=== PATIENT | male | born 1980 | race Caucasian/White ===

== ENCOUNTER 2021-03-17 10:53 | Emergency (ER) | payer OTHER, SELFPAY ==
--- NOTE | ~2021-03-17 | XR_ITS ---
EXAMINATION: XR hand RT min 3V, XR wrist RT min 3V EXAM DATE: 03/17/2021 12:14 INDICATION: Right hand swelling, injury . TECHNIQUE: Right hand frontal, lateral and oblique projections obtained and reviewed. Right wrist fro ntal, frontal with ulnar deviation, oblique and lateral projections obtained and reviewed. There is no prior study for comparison. FINDINGS: There is acute closed posttraumatic fracture through the head and neck of the right 4th met acarpal bone, an intra-articular fracture at the MCP joint. There is overlying soft tissue swelling. There is an old healed 5th metacarpal fracture. Right wrist scapholunate joint space is maintained. IMPRESSION: Right 4th metacarpal head/neck intra-articular fracture. Reviewed, dictated and finalized at location A. IMPRESSION: Right 4th metacarpal head/neck intra-articular fracture.
[2021-03-17 11:01] VITALS: BP 142/98; PULSE 112; RESP 16; TEMP 36.8; O2SAT 99
--- NOTE | 2021-03-17 11:57 | ED.UPPEXIN ---
HPI - Extremity Injury (Upper) General Chief Complaint: Extremity Injury, Upper Stated Complaint: R Hand Injury Time Seen by Provider: 03/17/21 11:28 Source: patient Mode of arrival: ambulatory Limitations: no limitations History of Present Illness HPI narrative: This is a 40 year old [id number] male that presents to the ER for right hand pain x 1 week. Reports an [place] Reports he accidentally hit his hand on a rail. Reports bruising, swelling and pain. He did have an x-ray at that time, and was told to see an orthopedic surgeon. He is not sure of the results of that x-ray though. He notes a small scab to the hand. He is up-to-date on tetanus. Denies decreased ROM or numbness. Related Data Allergies Allergy/AdvReac Type Severity Reaction Status Date / Time No Known Allergies Allergy Verified 03/17/21 11:19 Review of Systems Review of Systems: CONSTITUTIONAL: Denies fever SKIN: Denies rash MUSCULOSKELETAL: Reports joint pain, and myalgia. NEUROLOGIC: Denies numbness All systems reviewed & are unremarkable except as noted in HPI and below PMFSH Past Medical History Medical History (Updated 03/17/21 @ 14:35 by Feli Pizarro PA-C) No active medical problems Social History Social History (Updated 03/17/21 @ 12:01 by Feli Pizarro PA-C) Smoking status: Current every day smoker Exam Narrative: GENERAL: Well-appearing, well-nourished, and in no acute distress. HEAD: Normocephalic, atraumatic. EYES: EOMI. EXTREMITIES: Normal range of motion. Moderate edema and bruising to the right hand. Normal radial pulses. Normal sensation SKIN: Warm, dry, no rash. NEURO: No focal deficits. Alert and oriented x3. PSYCH: Normal mood and affect Course Vital Signs Vital signs: Vital Signs Temperature 98.3 F 03/17/21 11:01 Pulse Rate 112 H 03/17/21 11:01 Respiratory Rate 16 03/17/21 11:01 Blood Pressure 142/98 H 03/17/21 11:01 Pulse Oximetry 99 03/17/21 11:01 Temperature 98.3 F 03/17/21 11:01 Pulse Rate 112 H 03/17/21 11:01 Respiratory Rate 16 03/17/21 11:01 Blood Pressure 142/98 H 03/17/21 11:01 Pulse Oximetry 99 03/17/21 11:01 Procedures Orthopedic Splinting/Casting Injury #1: Splinting/Casting Date: 03/17/21 Splinting/Casting Time: 14:34 Side: right Upper Extremity Injury Location: hand Upper Extremity Immobilizer: volar splint Splint: customized in ED OCL: volar Pre-Procedure Neuro Vascular Exam: normal Post-Procedure Neuro Vascular Exam: normal MDM - Extremity Injury (Upper) MDM Narrative Medical decision making narrative: Patient presents to the emergency department for right hand injury sustained a week ago. He is neurovascularly intact. Right hand x-ray shows a fourth metacarpal head/neck intra-articular fracture. Patient placed in a volar splint. Will be given hand surgery for follow-up. He is stable and felt appropriate for further outpatient evaluation. He was given warnings to return to the ER Imaging Data Radiologist's impression: ITS Impressions Hand X-Ray 03/17/21 12:14 IMPRESSION: Right 4th metacarpal head/neck intra-articular fracture. Wrist X-Ray 03/17/21 12:14 IMPRESSION: Right 4th metacarpal head/neck intra-articular fracture. Critical Care Time Critical Care Time Critical Care Time: No Discharge Plan Discharge Clinical Impression: Closed fracture of fourth metacarpal bone of right hand Qualifiers: Encounter type: initial encounter Metacarpal location: neck Fracture alignment: nondisplaced Qualified Code(s): S62.364A - Nondisplaced fracture of neck of fourth metacarpal bone, right hand, initial encounter for closed fracture Patient Disposition: Home, Self-Care Condition: Stable Instructions: Hand Fracture (ED) Additional Instructions: Return to the emergency department if you experience fever, redness and swelling of your hand, num
[2021-03-17] MEDS: HYDROcodone/acetaminophen (*CRX) 5-325 MG TABLET 1 TAB PO (13:02)
[2021-03-17 15:00] VITALS: BP 143/94; PULSE 96; RESP 18; O2SAT 99
== END 2021-03-17 15:00 | disposition home or self-care (01) ==
PROVIDERS: Emergency Provider Emergency Medicine
DX: S62.364A Nondisplaced fracture of neck of fourth metacarpal bone, right hand, initial encounter for closed fracture (principal); F17.200 Nicotine dependence, unspecified, uncomplicated; W22.8XXA Striking against or struck by other objects, initial encounter
CPT/HCPCS: 29125; 73110; 73130; 99284; A9270

== ENCOUNTER 2024-11-05 11:16 | Emergency (ER) | payer OTHER, SELFPAY ==
[2024-11-05 11:25] VITALS: BP 137/89; PULSE 87; RESP 20; TEMP 36.6; O2SAT 100
--- NOTE | 2024-11-05 11:40 | ED_ITS ---
HPI - Extremity Problem General Chief complaint: Extremity Problem,Nontraumatic Stated complaint: Left Hand Finger Pain Time Seen by Provider: 11/05/24 11:40 Source: patient, RN notes reviewed and old records reviewed Mode of arrival: ambulatory Limitations: no limitations History of Present Illness HPI Narrative: 44-year-old male presents to the [facility] with redness, pain and possible abscess to the PIP joint left hand 2nd finger. Trouble flexing finger, unable to completely extend Patient reports that he scraped it approximately 10 days ago while working on his bike. Fluctuant dorsal aspect PIP, yellow purulent drainage noted under skin Onset (ago): day(s) (10) Related Data Home Medications ?Medication ?Instructions ?Recorded ?Confirmed ?Last Taken ?Type No Home Medications 11/05/24 11/05/24 Unknown History Allergies Allergy/AdvReac Type Severity Reaction Status Date / Time No Known Allergies Allergy Verified 11/05/24 11:20 Review of Systems Review of Systems: All systems reviewed & are unremarkable except as noted in HPI and below Constitutional: Constitutional: Reports no additional constitutional complaints ENT: Reports system reviewed and no additional complaints, except as documented Cardiovascular: Cardiovascular: Reports no additional cardiovascular complaints, Denies chest pain and Denies dyspnea Respiratory: Respiratory: Reports no additional respiratory complaints, Denies chest congestion, Denies cough and Denies dyspnea Musculoskeletal: Musculoskeletal: Reports as per HPI Integumentary/Breasts: Skin/Breast: Reports as per HPI PMFSH Past Medical History Medical History No active medical problems No active medical problems No active medical problems No active medical problems No active medical problems Social History Social History Smoking status: Current every day smoker Comments At the time of my signature, I reviewed and agree with the nursing past medical, surgical, social, and family history. There is no relevant family history pertinent to the patient complaint. Exam Const: General: cooperative, healthy appearing, comfortable, no acute distress, well developed, alert and well nourished Nutritional Appearance: well nourished Orientation/consciousness: patient oriented x3 Limitations: no limitations HENMT: Head: normal to inspection Eyes: General: appearance normal, both eyes and all related structures Alignment and Position: alignment normal Neck: Neck: normal visual inspection, full ROM, no lymphadenopathy and no meningeal signs Chest: Chest palpation & inspection: normal inspection of the chest Resp: Effort & Inspection: normal respiratory effort and able to speak in complete sentences Cardio: Rate: regular rate Skin: General skin exam: normal color and no rashes or lesions noted Neuro: General: patient oriented x3, gait normal, moves all extremities and no meningeal signs Cognition (Neuro): normal cognition Speech: normal speech Gait exam (Neuro): Normal gait present Extrem: General: normal to inspection, full ROM, capillary refill normal and normal gait Left upper extremity: hand tendon exam abnormal (Second finger left hand), tenderness of the 2nd digit, abnormal ROM of finger unable to flex and unable to extend, warmth of the 2nd digit, swelling of the 2nd digit and other (Abscess PIP 2nd finger); no crepitus, no foreign bodies and no puncture wound Psych: Appearance: grossly normal and well kempt Mental Status: mental status grossly normal Speech and movement: Normal speech and movement present and Clear speech present Affect: normal affect Attitude: cooperative Course Course Level of Care: Express Care Visit Vital Signs Vital signs: Vital Signs Temperature 97.8 F 11/05/24 11:25 Pulse Rate 87 11/05/24 11:25 Respiratory Rate 20 11/05/24 11:25 Blood Pressure 137/89 11/05/24 11:25 Pulse Oximetry 100 11/05/24 11:25 Oxygen Delivery Room Air 11/05/24 11:25 Temperature 97.8 F 11/05/24 11:25 Pulse Rate 87 11/05/24 11:25 Respiratory Rate 20 11/05/24 11:25 Blood Pressure 137/89 11/05/24 11:25 Pulse Oximetry 100 11/05/24 11:25 Oxygen Delivery Room Air 11/05/24 11:25 Reviewed MDM - Extremity (Nontraumatic) MDM Narrative Medical decision making narrative: Patient sitting in exam room. Patient is nontoxic, vitals stable. Patient with significant erythema, swelling to the 2nd finger left hand with concerns for an abscess in the PIP. Could also concern for tenosynovitis sending for higher level of care Critical Care Time Critical Care Time Critical Care Time: No Discharge Plan Discharge Clinical Impression: Cellulitis Patient Disposition: Acute Care Hospital Condition: Stable Patient Language: Malay Prescriptions: No Action No Home Medications Follow-up/Referrals: PHYSICIAN,ASSOCIATE ARTISTIC DIRECTOR [Primary Care Provider] -
== END 2024-11-05 12:00 | disposition short-term general hospital (02) ==
LOC: EXPCOLL 11:19
PROVIDERS: Emergency Provider Nurse Practitioner
DX: L03.114 Cellulitis of left upper limb (principal); F17.200 Nicotine dependence, unspecified, uncomplicated
CPT/HCPCS: 99212; G0463